=== PATIENT | female | born 1940 | race Two or more races ===

== ENCOUNTER 2018-05-29 10:03 | Day surgery (SDC) | payer OTHER ==
[2018-05-29] VITALS (7 sets, daily range): BP systolic 123–147; BP diastolic 51–72
[~2018-05-29] VITALS: Ht 144.8 cm; Wt 56.7 kg
[2018-05-29] MEDS ORDERED: Phenylephrine 2.5% Op 2ml Soln ONE (10:24)
[2018-05-29] MEDS ORDERED: Cyclopentolate 1% Opth Sol 2ml ONE (10:24)
[2018-05-29] MEDS ORDERED: AMLODIPINE BESY10 MG ORAL (10:40)
[2018-05-29] MEDS: Phenylephrine 2.5% Op 2ml Soln LEFT EYE SCH ×3 (10:44→11:00)
[2018-05-29] MEDS: Cyclopentolate 1% Opth Sol 2ml LEFT EYE SCH ×3 (10:44→11:00)
[2018-05-29] MEDS ORDERED: BSS 15ml BTL ONE (11:05)
[2018-05-29] MEDS ORDERED: BSS 500ml btl ONE (11:05)
[2018-05-29] MEDS ORDERED: Lidocaine 2% MPF 5ml Vial INJ ONE (11:05)
[2018-05-29] MEDS ORDERED: Bupivacaine 0.75% 30ml vial INJ ONE (11:05)
--- NOTE | 2018-05-29 11:19 | Pre-Procedure Note/Attestation ---
Pre-Procedure Note/Attestation Complete Prior to Procedure Planned Procedure: left Procedure Narrative: 23G PPV/MP/Gas left eye Indications for Procedure Pre-Operative Diagnosis: macular hole left eye Attestation I attest that I discussed the nature of the procedure; its benefits; risks and complications; and alternatives (and the risks and benefits of such alternatives ), prior to the procedure, with the patient (or the patient's legal cash posting representative). I attest that, if there was a reasonable possibility of needing a blood transfusion, the patient (or the patient's legal cash posting representative) was given the [facility] standardized written summary, pursuant to the Elvis Speed Blood Safety Act ([place] Health and Safety Code # 1645, as amended). I attest that I re-evaluated the patient just prior to the surgery and that there has been no change in the patient's H&P, except as documented below: Kike Hansen MD May 29, 2018 11:19
[2018-05-29] MEDS ORDERED: Kenalog-40 1ml Vial ONE (11:30)
[2018-05-29] MEDS ORDERED: EPINEPHrine 1mg/1ml Amp ONE (11:30)
[2018-05-29] MEDS ORDERED: Dexamethasone 4mg/ml vial ONE (11:30)
[2018-05-29] MEDS ORDERED: Goniotaire 2.5% Opth Soln - 15ml ONE (11:30)
[2018-05-29] MEDS ORDERED: Maxitrol Opth Oint 3.5gm ONE (11:34)
[2018-05-29] MEDS ORDERED: Indocyanine Green 25mg Inj INJ ONE (12:00)
--- NOTE | 2018-05-29 13:05 | Anethesia Preoperative Eval ---
Anesthesia Pre-op PMH/ROS General Date of Evaluation: May 29, 2018 Time of Evaluation: 12:33 Anesthesiologist: Jennifer Patel CRNA ASA Score: ASA 2 Mallampati Score Class I : Soft palate, uvula, fauces, pillars visible Class II: Soft palate, uvula, fauces visible Class III: Soft palate, base of uvula visible Class IV: Only hard plate visible Mallampati Classification: Class II Surgeon: Tyrone Diagnosis: LEFT eye macular hole Surgical Procedure: LEFT eye vitrectomy, membrane stripping, gas injection Anesthesia History: none Family History: no anesthesia problems Allergies: Coded Allergies: IBUPROFEN (Verified Allergy, Intermediate, 05/29/18) DIZZINESS Medications: see eMAR Patient NPO?: Yes NPO Date: May 29, 2018 NPO Time: 00:00 Past Medical History Cardiovascular: Reports: HTN; Denies: CAD, SD, valve dz, arrhythmia, other Pulmonary: Denies: asthma, COPD, CONCETTA, other Gastrointestinal/Genitourinary: Denies: GERD, CRI, ESRD, other Neurologic/Psychiatric: Denies: dementia, CVA, depression/anxiety, TIA, other Endocrine: Denies: DM, hypothyroidism, steroids, other HEENT: Reports: other - LEFT eye macular hole; Denies: cataract (L), cataract (R), glaucoma, CROW (L), CROW (R) Hematology/Immune: Denies: anemia, DVT, bleeding disorder, other Musculoskeletal/Integumentary: Reports: OA; Denies: RA, DJD, DDD, edema, other PMH Narrative: as above PSxH Narrative: C/S, appendectomy, hysterectomy Anesthesia Pre-op Phys. Exam Physician Exam Last Vital Signs Date Time Temp Pulse Resp B/P (MAP) Pulse Ox O2 Delivery O2 Flow Rate FiO2 05/29/18 10:53 98.1 18 18 147/72 99 Room Air Constitutional: NAD Neurologic: CN 2-12 intact Cardiovascular: RRR Respiratory: CTA Gastrointestinal: S/NT/ND Airway Exam Mallampati Score: Class II TMD: 3 FB ROM: full Teeth: missing Dentures: upper, lower Anesthesia Pre-op A/P Labs reviewed, see chart Studies Pre-op Studies: EKG - NSR Risk Assessment & Plan Assessment: ASA 2, ok to ptoceed Plan: MAC Status Change Before Surgery: No Pre-Antibiotics Given Within 1 Hr of Incision: No Koempel,Jennifer THEORETICAL PHYSICIST May 29, 2018 13:05
[2018-05-29] MEDS ORDERED: LR 1000ml ONE (13:30)
[2018-05-29] MEDS ORDERED: Propofol 200mg/20ml IV ONE (13:31)
--- NOTE | 2018-05-29 14:27 | Brief Operative Note ---
Immediate Post Operative Note Operative Note Chief Complaint: blurred vision left eye Pre-op Diagnosis: macular hole left eye Procedure: 23G PPV/MP/20%SF6 left eye Post-op Diagnosis: macular hole left eye Post-op Diagnosis: same as pre-op Findings: consistent w/pre-op dx studies Surgeon: Kike Hansen Anesthesia: local Specimen: none Complications: none Condition: stable Fluids: <500cc Estimated Blood Loss: none Drains: none Implant(s) used?: Kike Marley MD May 29, 2018 14:27
[2018-05-29] MEDS ORDERED: Norco 5mg/325mg tab ORAL PRN (14:30)
--- NOTE | 2018-05-29 14:32 | Immediate Post-Op Evaluation ---
Immediate Post-Op Evalulation Immediate Post-Op Evalulation Procedure: LEFT eye vitrectomy, membrane stripping, gas injection Date of Evaluation: May 29, 2018 Time of Evaluation: 14:25 IV Fluids: LR 100 ml Blood Pressure Systolic: 130 Blood Pressure Diastolic: 58 Pulse Rate: 72 Respiratory Rate: 22 O2 Sat by Pulse Oximetry: 100 Temperature (Fahrenheit): 98.5 Pain Score (1-10): 0 Nausea: No Vomiting: No Complications none Patient Status: awake, reacts, patent Hydration Status: adequate Given Within 1 Hr of Incision: Jennifer Mayorga CRNA May 29, 2018 14:32
--- NOTE | 2018-05-29 14:35 | 48 Hour Post Anesthesia Eval ---
Post Anesthesia Evaluation Procedure: LEFT eye vitrectomy, membrane stripping, gas injection Date of Evaluation: May 29, 2018 Time of Evaluation: 14:35 Blood Pressure Systolic: 134 0: 54 Pulse Rate: 76 Respiratory Rate: 20 Temperature (Fahrenheit): 98.5 O2 Sat by Pulse Oximetry: 98 Airway: patent Nausea: No Vomiting: No Pain Intensity: 0 Hydration Status: adequate Cardiopulmonary Status: stable Mental Status/LOC: patient returned to baseline Follow-up Care/Observations: per opthalmology Post-Anesthesia Complications: none Follow-up care needed: ready to discharge Jennifer Patel CRNA May 29, 2018 14:35
--- NOTE | 2018-05-29 21:30 | Operative Note - Dictated ---
DATE OF OPERATION: 05/29/2018 SURGEON: Kike Hansen M.D. PREOPERATIVE DIAGNOSIS: Macular hole, left eye. POSTOPERATIVE DIAGNOSIS: Macular hole, left eye. NAME OF OPERATION: A 23-gauge pars plana vitrectomy, membrane peel, and 20% SF6 gas, left eye. ANESTHESIA: Local. BLOOD LOSS: None. COMPLICATIONS: None. INDICATIONS: The patient is a 77-year-old female with history of blurred vision in her left eye. She was found to have a macular hole. The findings were discussed with the patient as well as the risks, benefits, and alternatives to the above-named procedure. The patient wishes to proceed with surgery. The patient understands the risks include, but are not limited to, loss of vision and loss of the eye. Informed consent was obtained. DESCRIPTION OF THE PROCEDURE: On the day of the procedure, the left eye was noted to be the operative eye and marked. The patient received 3 sets of the standard preoperative eye drops in the holding area. The patient was then brought to the operating room with appropriate anesthesia monitors placed. The left eye was again identified as the operative eye. During time-out, the nonoperative eye was patched and shielded. The operative eye then received a retrobulbar block consisting of 1 to 1 mixture of 2% lidocaine without epinephrine and 0.75% bupivacaine for a total of 5 mL. Anesthesia and akinesia were noted to be obtained. The operative eye was then prepped and draped in the usual sterile ophthalmic fashion. A lid speculum was placed in the operative eye. A 22-gauge cannulas were placed with infusion located inferotemporally. A standard 3 port pars plana vitrectomy was then performed. Kenalog was then used to stain the posterior hyaloid and a posterior vitreous detachment was induced with the vitreous cutter. ICG dye was then used to stain the internal limiting membrane and the residual dye was then removed. Intraocular forceps were then used to grasp the internal limiting membrane and peeled from the surface of the macula along with a macular pucker. The retina was inspected. There were no retinal breaks or tears. An air-fluid exchange was then performed and 20% SF6 gas was infused into the eye. The 23-gauge cannulas were then removed. The wounds were checked for leakage and found to be watertight. The intraocular pressure was palpated and found to be within normal limits. The patient then received subconjunctival injections of vancomycin and dexamethasone. The lid speculum and drapes were then removed. Maxitrol ointment and atropine eye drops were applied to the eye and the eye was patched and shielded. The patient tolerated the procedure well and was returned to the postoperative care area in good condition. Kike Hansen M.D. DR: Pam JOB#: [id number] CC:
== END 2018-05-29 15:15 | disposition home or self-care (01) ==
LOC: SUR 10:03
DX: H35.342 Macular cyst, hole, or pseudohole, left eye (principal); I10 Essential (primary) hypertension; Z90.89 Acquired absence of other organs; Z88.6 Allergy status to analgesic agent; M19.90 Unspecified osteoarthritis, unspecified site; Z90.710 Acquired absence of both cervix and uterus
CPT/HCPCS: 67042; J0171; J0690; J1100; J2704; J3301; J3490; 94003; 94150